=== PATIENT | female | born 2000 | race Caucasian/White ===

== ENCOUNTER 2019-06-20 18:24 | Emergency (ER) | payer OTHER ==
[2019-06-20 18:43] VITALS: BP 122/67; PULSE 86; TEMP 98; BMI 27.1
--- NOTE | 2019-06-20 18:58 | PDOC ---
History of Present Illness - General Chief Complaint: Vaginal Sxs Stated Complaint: VAGINAL IRRITATION Time Seen by Provider: 06/20/19 18:51 History Source: Patient Exam Limitations: No Limitations - History of Present Illness Initial Comments: 06/20/19 19:22 Here with complaints of itching inflamed with white thick discharge consistent with yeast infection. Patient states is supple with same in the past but none recently. Tried apple cider vinegar with no resolve . 8 months , no vaginal bleeding, most with bowel or bladder. Timing/Duration: unsure, getting worse Severity: mild, moderate Associated Symptoms: reports: denies symptoms. denies: fever/chills Past History - Travel Traveled outside of the country in the last 30 days: No Close contact w/someone who was outside of country & ill: No - Past Medical History Allergies/Adverse Reactions: Allergies Allergy/AdvReac Type Severity Reaction Status Date / Time No Known Allergies Allergy Verified 06/20/19 18:31 Home Medications: Ambulatory Orders Clotrimazole [Clotrimazole-7] 45 gm VG HS #1 cream.appl 06/20/19 COPD: No - Suicide/Smoking/Psychosocial Hx Smoking History: Never smoked Review of Systems - Review of Systems Able to Perform ROS?: Yes Is the patient limited [place]uran proficient: Yes Constitutional: Yes: Symptoms Reported, See HPI, Malaise. No: Fever HEENTM: No: Symptoms Reported Respiratory: No: Symptoms reported : Yes: Symptoms Reported, See HPI, Discharge Musculoskeletal: No: Symptoms Reported All Other Systems: Reviewed and Negative *Physical Exam - Vital Signs Last Vital Signs Temp Pulse Resp BP Pulse Ox 98 F 86 18 122/67 99 06/20/19 18:29 06/20/19 18:29 06/20/19 18:29 06/20/19 18:29 06/20/19 18:29 - Physical Exam General Appearance: Yes: Nourished, Appropriately Dressed, Apparent Distress, Mild Distress HEENT: positive: KWAME, Normal ENT Inspection, TMs Normal, Pharynx Normal Neck: positive: Supple Female Pelvic Exam: positive: normal external exam (with mildly swollen, beefy red appearance to vulva and labia with thick white discharge consistent with appearance of candidiasis), discharge Gastrointestinal/Abdominal: negative: Normal Bowel Sounds Extremity: positive: Normal Capillary Refill 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 NML intact, Fully Oriented, Alert, Normal Mood/ Affect, Normal Response, Motor Strength 03/01 Medical Decision Making - Medical Decision Making 06/20/19 19:25 Vaginal candidiasis, we'll treat with teraconazole, safe with 06/20/19 19:27 *DC/Admit/Observation/Transfer Diagnosis at time of Disposition: Vagina, candidiasis - Discharge Dispostion Disposition: HOME Condition at time of disposition: Stable Decision to Admit order: No - Referrals Referrals: ON STAFF,NOT [Primary Care Provider] - - Patient Instructions Printed Discharge Instructions: DI for Vaginal Yeast Infection Additional Instructions: Wash thoroughly with gentle soaps and dry thoroughly Sitz baths in tepid water/warm water may help resolve some of the itching Sexual contact until infection is resolved Use Monistat/clotrimazole cream 1 application nightly for 7 days May use Tylenol for pain relief Follow-up with OB in 2-3 days or if worsening - Post Discharge Activity Forms/Work/School Notes: Back to Work
== END 2019-06-20 19:00 | disposition home or self-care (01) ==
LOC: JERFT 18:24
DX: O26.893 Other specified pregnancy related conditions, third trimester (principal); O98.813 Other maternal infectious and parasitic diseases complicating pregnancy, third trimester; B37.3 Candidiasis of vulva and vagina; Z3A.32 32 weeks gestation of pregnancy
CPT/HCPCS: 87070; 87077; 87186; 87205; 99281-25

== ENCOUNTER 2019-08-01 03:55 | Inpatient (IN) | payer OTHER ==
[2019-08-01] MEDS ORDERED: DEXTROSE 5%-LACTATED RINGERS 1,000 ML IV SCH ×2 (04:00→17:30)
[2019-08-01] MEDS ORDERED: BUTORPHANOL TARTRATE 1 MG/ML VIAL IVPB PRN (04:00)
[2019-08-01] MEDS ORDERED: PROMETHAZINE HCL 25 MG/1 ML VIAL IVPB PRN (04:00)
[2019-08-01] MEDS ORDERED: AMPICILLIN - 2 GM in SODIUM CHLORIDE 100 ML IVPB ONE (05:00)
[2019-08-01] MEDS ORDERED: AMPICILLIN SODIUM 2 GM VIAL ONE (05:00)
[2019-08-01 05:55] VITALS: BMI 32.3
[2019-08-01 06:15] LABS: COCAINE, UR NEGATIVE ng/ml (CUTOFF=300); INR 0.95 (0.83-1.09); METHADONE, UR NEGATIVE ng/ml (CUTOFF=300); OPIATES, URI NEGATIVE ng/ml (CUTOFF=300); PHENCYCLIDINE,URINE NEGATIVE ng/ml (CUTOFF=25); PROTHROMBIN TIME (PATIENT) 11.2 SEC (9.7-13.0); URINE AMPHETAMINES NEGATIVE ng/ml (CUTOFF=500); URINE BARBITURATES NEGATIVE ng/ml (CUTOFF=200); URINE BENZODIAZEPINES NEGATIVE ng/ml (CUTOFF=200)
[2019-08-01 06:18] LABS: ACTIVATED PTT 30.5 SECONDS (25.2-36.5)
[2019-08-01 06:19] LABS: BASO % 0.3 % (0-2.0); EOS % 1.2 % (0-4.5); HEMOGLOBIN 10.4 GM/dL (10.7-15.3); MCH 26.9 pg (25.7-33.7); MCHC 33.4 g/dl (32.0-36.0); MEAN CELL VOLUME 80.4 fl (80-96); MEAN PLT VOLUME 8.2 fl (7.5-11.1); MONO % 8.5 % (3.8-10.2); PLATELET COUNT 318 K/MM3 (134-434); RBC 3.85 M/mm3 (3.60-5.2); RDW 15.8 % (11.6-15.6); WHITE BLOOD COUNT 8.6 K/mm3 (4.0-10.0)
[2019-08-01] MEDS ORDERED: BUTORPHANOL TARTRATE 1 MG/ML VIAL ONE ×2 (06:19)
[2019-08-01] MEDS ORDERED: PROMETHAZINE HCL 25 MG/1 ML VIAL ONE (06:19)
[2019-08-01 06:34] LABS: ALBUMIN 2.6 g/dl (3.4-5.0); BILIRUBIN,TOTAL 0.4 mg/dL (0.2-1); CALCIUM 8.3 mg/dL (8.5-10.1); CREATININE 0.4 mg/dL (0.55-1.3); POTASSIUM 4.1 mmol/L (3.5-5.1); TOT PROT 6.3 g/dl (6.4-8.2)
[2019-08-01 06:40] LABS: EPI CELLS 7.7 /HPF (0-5/HPF); HYALINE CASTS 28 /lpf (0-8); PH,URINE 6.5 (5.0-8.0); URINE APPEARANCE CLEAR; URINE BACTERIA 303.5 /hpf (NEGATIVE); URINE BILIRUBIN NEGATIVE (NEGATIVE); URINE COLOR YELLOW; URINE GLUCOSE (UA) NEGATIVE (NEGATIVE); URINE KETONE NEGATIVE (NEGATIVE); URINE LEUK ESTERASE 1+ (NEGATIVE); URINE NITRITE NEGATIVE (NEGATIVE); URINE PROTEIN NEGATIVE (NEGATIVE); URINE RBC 1 /hpf (0-4); URINE UROBILINOGEN 0.2 mg/dL (0.2-1.0); URINE WBC 10 /hpf (0-5)
[2019-08-01] MEDS ORDERED: FENTANYL/BUPIVACAINE/NS/PF - PCEA - 50 ML DISP.SYRIN EP ONE ×2 (07:50→12:43)
[2019-08-01] MEDS ORDERED: LIDO 2%/EPI 1:200000 PRESRVFRE (20 ML SDVIAL) ONE (07:55)
[2019-08-01] MEDS ORDERED: NALOXONE HCL 0.4 MG/ML VIAL IVPUSH PRN (08:19)
--- NOTE | 2019-08-01 08:22 | PN ---
Progress Note (short form) - Note Progress Note: cx 2 cm 70 vx -3 mr , fhr cat 1, irregular contraction, unable to tolerate pain , requesting epidural , advsied pitocin after epidural toget contraction regulated, rba discussed
[2019-08-01] MEDS ORDERED: AMPICILLIN SODIUM 1 GM VIAL ONE ×2 (08:26→12:20)
[2019-08-01] MEDS ORDERED: ELECTROLYTE-148 SOLN 1,000 ML IV SCH (08:30)
[2019-08-01] MEDS: AMPICILLIN - 1 GM in SODIUM CHLORIDE 100 ML IVPB SCH ×3 (08:30→17:59)
[2019-08-01] MEDS ORDERED: FENTANYL/BUPIVACAINE/NS/PF - PCEA - 50 ML DISP.SYRIN EP SCH (08:30)
[2019-08-01] MEDS ORDERED: OXYTOCIN 30 UNITS in 0.9% NS 30 UNIT/500 ML INFUS.BAG IVPB SCH (08:30)
--- NOTE | 2019-08-01 08:31 | HP ---
Past Medical History - Primary Care Physician PCP:: Ever Palmer - Admission Chief Complaint: 39 weeks, ROM, early labor History of Present Illness: 18 yo f 39 weeks, care in [place], [place] , c/o of rom, clear fluid , has contraction, no bleeding, no fever, good fm, cx 2 cm 75 vx -3 mr, fhr cat 1,irregular contraction, nitrazine positive. History Source: Patient Limitations to Obtaining History: No Limitations - Past Medical History ...: 1 ...Para: 0 ... Weeks Gestation by Dates: 39.4 ...EDC by Dates: 08/04/19 Heme/Onc: Yes: Anemia - Past Surgical History Hx Myomectomy: No Hx Transabdominal Cerclage: No - Smoking History Smoking history: Never smoked - Alcohol/Substance Use Hx Alcohol Use: No History of Substance Use: reports: None - Social History History of Recent Travel: No Home Medications - Allergies Allergies/Adverse Reactions: Allergies Allergy/AdvReac Type Severity Reaction Status Date / Time No Known Allergies Allergy Verified 08/01/19 04:53 - Home Medications Home Medications: Ambulatory Orders Vitamins (Sjr) - 1 tab PO DAILY 08/01/19 Review of Systems - Review of Systems Constitutional: reports: No Symptoms Eyes: reports: No Symptoms HENT: reports: No Symptoms Neck: reports: No Symptoms Cardiovascular: reports: No Symptoms Respiratory: reports: No Symptoms Gastrointestinal: reports: No Symptoms Genitourinary: reports: No Symptoms Breasts: reports: No Symptoms Reported Musculoskeletal: reports: No Symptoms Integumentary: reports: No Symptoms Neurological: reports: No Symptoms Endocrine: reports: No Symptoms Hematology/Lymphatic: reports: No Symptoms Psychiatric: reports: No Symptoms Physical Exam - Maternity Vital Signs: Vital Signs Temperature 98.1 F 08/01/19 07:00 Pulse Rate 69 08/01/19 07:00 Respiratory Rate 20 08/01/19 07:00 Blood Pressure 117/71 08/01/19 07:00 O2 Sat by Pulse Oximetry (%) Constitutional: Yes: Well Nourished, No Distress, Calm Eyes: Yes: WNL, Conjunctiva Clear, EOM Intact HENT: Yes: WNL, Atraumatic, Normocephalic Neck: Yes: WNL, Supple, Trachea Midline Cardiovascular: Yes: WNL, Regular Rate and Rhythm Breast(s): Yes: WNL - Abdominal Exam/OB Fundal Height: 38 Number of Fetuses: Single Presentation: Vertex Contractions: Yes Regularity: Irregular Intensity: Strong Monitor Mode: External Heart Rate Location: [facility] Category: I Accelerations: Non-Uniform Decelerations: None - Vaginal Exam/OB Vaginal Bleediing: No Speculum Exam: Yes Dilatation (cm): 2 cm Effacement (%): 70 Nitrazine Test: Positive Presentation: Vertex/Position Station: -3 - Physical Exam Edema: Yes Edema: LLE: Trace, RLE: Trace Deep Tendon Reflex Grade: Normal +2 ...Motor Strength: WNL Psychiatric: Yes: WNL - Labs Lab Results: CBC, BMP 08/01/19 06:04 08/01/19 04:33 Hemorrhage Risk Assessment - Risk Factors Medium Risk Factors: Yes: None High Risk Factors: Yes: None Risk Score: 1 Risk Level: Medium Risk Problem List - Problems (1) with 39 completed weeks gestation Code(s): Z3A.39 - 39 WEEKS GESTATION OF (2) membrane rupture Code(s): CAH6952 - (3) Labor established Code(s): [id number] - Assessment/Plan admit, GBS unknown, iv ampicillin pain management. if irregular contraction needs pitocin stimulation FHM
--- NOTE | 2019-08-01 10:18 | PN ---
Progress Note (short form) - Note Progress Note: cx 3 cm 80 vx-3 mr, fhr cat 1, on pitocin , contraction q 4 min Problem List - Problems (1) with 39 completed weeks gestation Code(s): Z3A.39 - 39 WEEKS GESTATION OF (2) membrane rupture Code(s): PSO9945 - (3) Labor established Code(s): ESY7589 -
[2019-08-01] MEDS ORDERED: CITRIC ACID/SODIUM CITRATE 30 ML UNIT-DOSE CUP PO ONE (15:41)
--- NOTE | 2019-08-01 15:41 | PN ---
Progress Note (short form) - Note Progress Note: cx 2 cm , edematous , vx -3 , vx contraction q 2 min, no cervicl dilation noted since last exam , with cervical edema advised c/s. risks discussed , ulternatives explained Problem List - Problems (1) with 39 completed weeks gestation Code(s): Z3A.39 - 39 WEEKS GESTATION OF (2) membrane rupture Code(s): [id number] - (3) Labor established Code(s): FSY1762 -
[2019-08-01] MEDS ORDERED: BUPIVACAINE HCL/PF 2.5 MG/ML - 30 ML VIAL IJ ONE (16:00)
--- NOTE | 2019-08-01 16:11 | PN ---
Problem List - Problems (1) with 39 completed weeks gestation Code(s): Z3A.39 - 39 WEEKS GESTATION OF (2) membrane rupture Code(s): [id number] - (3) Labor established Code(s): UOU1512 -
[2019-08-01] MEDS ORDERED: ceFAZolin SODIUM 1 GM VIAL ONE (16:16)
[2019-08-01] MEDS: CEFAZOLIN 1 GM/D5W 1 GM/50 ML BAG IVPB SCH (16:17)
[2019-08-01] MEDS ORDERED: PROPOFOL 20 ML ONE (16:28)
[2019-08-01] MEDS ORDERED: SUCCINYLCHOLINE CHLORIDE 200 MG/10 ML SYRINGE ONE (16:32)
[2019-08-01] MEDS ORDERED: OXYTOCIN 10 UNITS/ML VIAL ONE (16:36)
[2019-08-01] MEDS ORDERED: morphine SULFATE/PF 0.5 MG/ML (2cc Syringe - QUVA) ONE ×3 (16:40)
[2019-08-01] MEDS ORDERED: DEXAMETHASONE SOD PHOSPHATE 4 MG/1 ML VIAL ONE (16:42)
[2019-08-01] MEDS ORDERED: BENZOCAINE 28 GM HEMORRHOIDAL OINTMENT PR PRN (17:18)
[2019-08-01] MEDS ORDERED: METHYLERGONOVINE MALEATE 0.2 MG/1 ML AMP IM PRN (17:18)
[2019-08-01] MEDS ORDERED: IBUPROFEN 800 MG/8 ML IJ IVPB PRN (17:18)
[2019-08-01] MEDS ORDERED: diphenhydrAMINE HCL 25 MG CAPSULE (FP) PO PRN (17:18)
[2019-08-01] MEDS ORDERED: BENZOCAINE 20% 57 GM BOTTLE TP PRN (17:18)
[2019-08-01] MEDS ORDERED: oxyCODONE HCL 5 MG TABLET PO PRN (17:18)
[2019-08-01] MEDS ORDERED: WITCH HAZEL 50% (TUCKS) 40 PAD/JAR PAD TP PRN (17:18)
[2019-08-01] MEDS ORDERED: ACETAMINOPHEN 1000 MG/100 ML VIAL (NON FORMULARY) IVPB PRN (17:19)
--- NOTE | 2019-08-01 17:22 | OP ---
Operative Note - Note: Operative Date: 08/01/19 Pre-Operative Diagnosis: 39 weeks, ROM, failure to dilate Operation: primary LST c/s Findings: live baby girl 07/06 Surgeon: Ever Palmer Gyro Mechanic: Garrett Gonzalez Anesthesia: General, Epidural Specimens Removed: placenta Estimated Blood Loss (mls): 500 Drains & Tubes with Location: edgar Blood Volume Replaced (mls): 0 Operative Report Dictated: Yes
[2019-08-01] MEDS ORDERED: ONDANSETRON 4 MG/2 ML VIAL IVPUSH PRN (17:25)
[2019-08-01] MEDS ORDERED: HYDROmorphone *PCA* 10MG/50ML DISP.SYRIN PCA SCH (17:30)
[2019-08-01] MEDS ORDERED: LACTATED RINGERS SOLUTION 1,000 ML IV SCH (17:30)
[2019-08-01] MEDS ORDERED: OXYTOCIN 20 UNITS in 0.9% NS 20 UNIT/1,000 ML INFUS.BAG IV SCH (17:30)
[2019-08-01] MEDS ORDERED: OXYTOCIN 20 UNITS in 0.9% NS 20 UNIT/1,000 ML INFUS.BAG IV ONE (17:48)
[2019-08-01] MEDS ORDERED: HYDROmorphone *PCA* 10MG/50ML DISP.SYRIN ONE (18:01)
[2019-08-02] MEDS: CEFAZOLIN 1 GM/D5W 1 GM/50 ML BAG IVPB SCH (01:10)
[2019-08-02 09:09] LABS: BASO % 0.5 % (0-2.0); EOS % 0.4 % (0-4.5); HEMATOCRIT 27.6 % (32.4-45.2); HEMOGLOBIN 9.1 GM/dL (10.7-15.3); LYMPH % 11.3 % (8-40); MCH 26.4 pg (25.7-33.7); MCHC 32.9 g/dl (32.0-36.0); MEAN CELL VOLUME 80.3 fl (80-96); MEAN PLT VOLUME 8.2 fl (7.5-11.1); MONO % 7.3 % (3.8-10.2); NEUT % 80.5 % (42.8-82.8); PLATELET COUNT 286 K/MM3 (134-434); RBC 3.44 M/mm3 (3.60-5.2); RDW 15.4 % (11.6-15.6); WHITE BLOOD COUNT 13.8 K/mm3 (4.0-10.0)
[2019-08-02] MEDS ORDERED: FLU VACC QS2019-20(6MOS UP)/PF 60 MCG/0.5 ML SYRINGE IM ONE (09:45)
[2019-08-02] MEDS ORDERED: FLU VACCINE QUAD 60 MCG/0.5 ML (MDV 19-20) IM ONE (10:00)
[2019-08-02] MEDS ORDERED: DIPHTH,PERTUSS(ACELL),TET 0.5 ML DISP.SYRIN IM ONE (10:00)
--- NOTE | 2019-08-02 10:48 | PN ---
Progress Note (short form) - Note Progress Note: pod 1 ,doing well, no c/o CBC, BMP 08/02/19 07:00 08/01/19 04:33 Last Vital Signs Temp Pulse Resp BP Pulse Ox 98.2 F 74 20 102/61 97 08/02/19 06:00 08/02/19 06:00 08/02/19 06:00 08/02/19 06:00 08/01/19 22:10 abdomen soft, no distension, no cva incision dry, clean no calf tenderness edgar clear urine plan ambulate, advance diet, pain management Problem List - Problems (1) with 39 completed weeks gestation Code(s): Z3A.39 - 39 WEEKS GESTATION OF (2) membrane rupture Code(s): [id number] - (3) Labor established Code(s): [id number] -
--- NOTE | 2019-08-02 12:05 | PN ---
Progress Note (short form) - Note Progress Note: 18yo F s/p C/S req GA pain controlled w IV meds, not using POLE CLIMBER. to d/c POLE CLIMBER and cont PO meds and adjuncts good result anesthetic care
[2019-08-02] MEDS: SIMETHICONE 80 MG TAB.CHEW (FP) PO PRN ×2 (14:24→15:44)
[2019-08-02] MEDS: IBUPROFEN 600 MG TABLET (FP) PO PRN (14:24)
[2019-08-02] MEDS: ACETAMINOPHEN 325 MG TABLET (FP) PO PRN (14:25)
[2019-08-02] MEDS: oxyCODONE HCL 5 MG TABLET PO PRN (15:43)
[2019-08-02] MEDS: ENOXAPARIN NA (PORCINE) 40 MG/0.4 ML DISP.SYRIN SQ SCH (15:45)
[2019-08-02] MEDS ORDERED: PCA PUMP KEY 1 EACH EACH ONE (16:02)
[2019-08-02] MEDS ORDERED: BISACODYL 10 MG SUPP.RECT PR PRN (17:18)
[2019-08-03] MEDS: oxyCODONE HCL 5 MG TABLET PO PRN ×2 (03:45→22:55)
[2019-08-03] MEDS: SIMETHICONE 80 MG TAB.CHEW (FP) PO PRN ×4 (03:45→21:02)
[2019-08-03] MEDS: ACETAMINOPHEN 325 MG TABLET (FP) PO PRN ×4 (03:46→21:03)
[2019-08-03] MEDS: IBUPROFEN 600 MG TABLET (FP) PO PRN ×3 (08:10→21:03)
[2019-08-03] MEDS: ENOXAPARIN NA (PORCINE) 40 MG/0.4 ML DISP.SYRIN SQ SCH (09:54)
[2019-08-03 12:53] LABS: POC NITRAZINE NEG
--- NOTE | 2019-08-03 14:07 | PN ---
Progress Note (short form) - Note Progress Note: pod 2 s/p c/s , ambulating, had BM .no excess vaginal bleeding CBC, BMP 08/02/19 07:00 08/01/19 04:33 Last Vital Signs Temp Pulse Resp BP Pulse Ox 98.2 F 75 20 102/55 L 97 08/03/19 10:00 08/03/19 10:00 08/03/19 10:00 08/03/19 10:00 08/01/19 22:10 abdomen soft, no distension, no cva uterus firm, non tender lochia mild no calf tenderness plan ambulate , cbc in am pain management Problem List - Problems (1) with 39 completed weeks gestation Code(s): Z3A.39 - 39 WEEKS GESTATION OF (2) membrane rupture Code(s): [id number] - (3) Labor established Code(s): HPH3739 -
[2019-08-03] MEDS: SENNOSIDES/DOCUSATE COMBO (SENNA PLUS) TABLET (UD) PO PRN (21:02)
--- NOTE | 2019-08-04 07:47 | PN ---
Post Progress Note Type of Delivery: Primary C/S Vital Signs: Vital Signs Temperature 98.0 F 08/03/19 20:39 Pulse Rate 70 08/03/19 20:39 Respiratory Rate 20 08/03/19 20:39 Blood Pressure 114/54 L 08/03/19 20:39 O2 Sat by Pulse Oximetry (%) 97 08/01/19 22:10 Breast Exam: Yes: Other (deferred) Uterus: Yes: Fundus Firm Incision: Yes: Dressing dry and intact, [place]ise[place] intact Abdomen/GI: Yes: Abdomen soft Lochia, amount: Moderate Extremities: Yes: Calves non-tender Activity: Ambulating - Labs Labs: CBC WBC 13.8 K/mm3 (4.0-10.0) H 08/02/19 07:00 RBC 3.44 M/mm3 (3.60-5.2) L 08/02/19 07:00 Hgb 9.1 GM/dL (10.7-15.3) L 08/02/19 07:00 Hct 27.6 % (32.4-45.2) L 08/02/19 07:00 MCV 80.3 fl (80-96) 08/02/19 07:00 MCH 26.4 pg (25.7-33.7) 08/02/19 07:00 MCHC 32.9 g/dl (32.0-36.0) 08/02/19 07:00 RDW 15.4 % (11.6-15.6) 08/02/19 07:00 Plt Count 286 K/MM3 (134-434) 08/02/19 07:00 MPV 8.2 fl (7.5-11.1) 08/02/19 07:00 Absolute Neuts (auto) 11.1 K/mm3 (1.5-8.0) H 08/02/19 07:00 Neutrophils % 80.5 % (42.8-82.8) 08/02/19 07:00 Lymphocytes % 11.3 % (8-40) D 08/02/19 07:00 Monocytes % 7.3 % (3.8-10.2) 08/02/19 07:00 Eosinophils % 0.4 % (0-4.5) 08/02/19 07:00 Basophils % 0.5 % (0-2.0) 08/02/19 07:00 Nucleated RBC % 0 % (0-0) 08/02/19 07:00 Other Findings, Remarks: Patient was shivering on exam Assessment/Plan POD # 3 stable vitals and H/H, significant shivering. Patient desires to stay an extra day. -Continue PP/post-op care -CBC in the AM -warm blanket -Breakfast
[2019-08-04 08:35] LABS: BASO % 0.3 % (0-2.0); EOS % 2.8 % (0-4.5); HEMOGLOBIN 8.8 GM/dL (10.7-15.3); LYMPH % 21.1 % (8-40); MCH 26.2 pg (25.7-33.7); MCHC 32.8 g/dl (32.0-36.0); MEAN CELL VOLUME 79.9 fl (80-96); MEAN PLT VOLUME 7.9 fl (7.5-11.1); MONO % 8.6 % (3.8-10.2); NEUT % 67.2 % (42.8-82.8); PLATELET COUNT 297 K/MM3 (134-434); RBC 3.38 M/mm3 (3.60-5.2); RDW 15.5 % (11.6-15.6); WHITE BLOOD COUNT 7.6 K/mm3 (4.0-10.0)
[2019-08-04] MEDS: ACETAMINOPHEN 325 MG TABLET (FP) PO PRN ×2 (08:54→22:02)
[2019-08-04] MEDS: IBUPROFEN 600 MG TABLET (FP) PO PRN ×2 (08:55→22:01)
[2019-08-04] MEDS: SIMETHICONE 80 MG TAB.CHEW (FP) PO PRN ×2 (08:56→22:01)
[2019-08-04] MEDS: ENOXAPARIN NA (PORCINE) 40 MG/0.4 ML DISP.SYRIN SQ SCH (11:01)
--- NOTE | 2019-08-04 17:07 | PATH ---
Surgical Pathology Report Patient Name: JUSTIN CONNER Med. Rec. 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 Specimen(s) Received PLACENTA Clinical History , 39.4 weeks PROM, failure to dilate Final Diagnosis PLACENTA, SECTION: 570 G THIRD TRIMESTER PLACENTA. MILD TO MODERATE ACUTE CHORIOAMNIONITIS. TRIVASCULAR UMBILICAL CORD WITH ACUTE PHLEBITIS. Electronically Signed Ellen Bobo M.D. Gross Description The specimen is received fresh labeled placenta and is a 570 gram, 21 x 17 x 1.5 cm. placenta with attached membranes and umbilical cord. The attached membranes are pink-pelaez, opaque and insert marginally. The umbilical cord measures 18 cm. in length and averages 1.5 cm. in diameter. The cord inserts eccentrically, 3 cm. to the nearest margin. No true knots or strictures are identified. Cut surface of the umbilical cord reveals 3 vessels. The surface is levin-blue with minimal fibrin deposition and appropriate caliber vessels. The maternal surface is red-brown with focal defects. Sectioning reveals red-brown, spongy parenchyma. No lesions are identified. Curb Machine Operator sections are submitted in three cassettes as follows: 1- membrane rolls and umbilical cord; 2-3- full thickness sections of placenta. MLSZ/08/03/2019 sanml/08/03/2019
[2019-08-04] MEDS: SENNOSIDES/DOCUSATE COMBO (SENNA PLUS) TABLET (UD) PO PRN (21:58)
[2019-08-04] MEDS: oxyCODONE HCL 5 MG TABLET PO PRN (23:30)
--- NOTE | 2019-08-05 08:30 | PN ---
Post Progress Note - Subjective Subjective: no complains of dizziness voiding without difficulty pain score 6/10 max Post Day: 4 Type of Delivery: Primary C/S Vital Signs: Vital Signs Temperature 98.3 F 08/04/19 22:00 Pulse Rate 90 08/04/19 22:00 Respiratory Rate 18 08/04/19 22:00 Blood Pressure 103/60 08/04/19 22:00 O2 Sat by Pulse Oximetry (%) 97 08/01/19 22:10 Breast Exam: Yes: Soft, Other (bottle & BF ). No: Engorged Uterus: Yes: Fundus Firm, Fundus below umbilicus, Non-tender Incision: Yes: Other ([place] removed , wound healing satisfactory. steristrips applied .edges well approximated ). No: Redness, Oozing Abdomen/GI: Yes: Abdomen soft, Passing flatus, Tolerating PO (diet ). No: Abdominal Distention, Tender Lochia: Yes: Rubra Lochia, amount: Small Extremities: Yes: Calves non-tender Perineum: Yes: Intact Activity: Ambulating - Labs Labs: CBC WBC 7.6 K/mm3 (4.0-10.0) 08/04/19 07:05 RBC 3.38 M/mm3 (3.60-5.2) L 08/04/19 07:05 Hgb 8.8 GM/dL (10.7-15.3) L 08/04/19 07:05 Hct 27.0 % (32.4-45.2) L 08/04/19 07:05 MCV 79.9 fl (80-96) L 08/04/19 07:05 MCH 26.2 pg (25.7-33.7) 08/04/19 07:05 MCHC 32.8 g/dl (32.0-36.0) 08/04/19 07:05 RDW 15.5 % (11.6-15.6) 08/04/19 07:05 Plt Count 297 K/MM3 (134-434) 08/04/19 07:05 MPV 7.9 fl (7.5-11.1) 08/04/19 07:05 Absolute Neuts (auto) 5.1 K/mm3 (1.5-8.0) 08/04/19 07:05 Neutrophils % 67.2 % (42.8-82.8) 08/04/19 07:05 Lymphocytes % 21.1 % (8-40) D 08/04/19 07:05 Monocytes % 8.6 % (3.8-10.2) 08/04/19 07:05 Eosinophils % 2.8 % (0-4.5) D 08/04/19 07:05 Basophils % 0.3 % (0-2.0) 08/04/19 07:05 Nucleated RBC % 0 % (0-0) 08/04/19 07:05 Problem List - Problems (1) Status post section routine follow-up Code(s): Z39.2 - ENCOUNTER FOR ROUTINE FOLLOW-UP; Z98.891 - HISTORY OF UTERINE SCAR FROM PREVIOUS SURGERY Assessment/Plan Anemia , Post op noted pt counselled for anemia & diet, po prenatl vit 7 iron wound care explained pp instructions given discharge today
[2019-08-05] MEDS: ENOXAPARIN NA (PORCINE) 40 MG/0.4 ML DISP.SYRIN SQ SCH (09:29)
[2019-08-05 10:03] VITALS: BP 108/51; PULSE 58; TEMP 98.1
--- NOTE | 2019-08-05 19:07 | DS ---
Physical Exam-SALES AND CUSTOMER RELATIONS REP Vital Signs: Vital Signs Temperature 98.1 F 08/05/19 09:00 Pulse Rate 58 L 08/05/19 09:00 Respiratory Rate 18 08/05/19 09:00 Blood Pressure 108/51 L 08/05/19 09:00 O2 Sat by Pulse Oximetry (%) 97 08/01/19 22:10 Constitutional: Yes: Well Nourished, No Distress, Calm Eyes: Yes: WNL, Conjunctiva Clear, EOM Intact HENT: Yes: WNL, Atraumatic, Normocephalic Neck: Yes: WNL, Supple, Trachea Midline Cardiovascular: Yes: WNL, Regular Rate and Rhythm Respiratory: Yes: WNL, Regular, CTA Bilaterally Gastrointestinal: Yes: WNL ...Rectal Exam: Yes: WNL Renal/: Yes: WNL ....Post : Yes: Uterus firm, Uterus non-tender, Slight lochia rubra Breast(s): Yes: WNL Musculoskeletal: Yes: WNL Extremities: Yes: WNL Integumentary: Yes: WNL Wound/Incision: Yes: Clean/Dry, Well Approximated, [place] Intact Neurological: Yes: WNL, Alert, Oriented ...Motor Strength: WNL Psychiatric: Yes: WNL, Alert, Oriented Labs: CBC, BMP 08/04/19 07:05 08/01/19 04:33 Delivery - Delivery Section: Primary, Low Flap Transverse Type of Anesthesia: Epidural, General EBL (cc): 500 Delivery, Single - Stages of Labor Date of Delivery: 08/01/19 Time of Delivery: 16:32 Time Placenta Delivered: 16:33 Placenta: Yes: Expressed - Condition of Infant Shell Coremaker/Child Care Sitter Present: Yes Name: Chandrika Armijo Gender: Female Weight: 6 lb 14 oz Position: Right, OP Total Hours ROM (Hrs/Mins): 14 hours and 32 minutes - 1 Minute Total Score: 9 5 Minutes Total Score: 9 - Feeding Plan Initial Plan: Elected not to breastfeed exclusively throughout hospitalization Discharge Summary Reason For Visit: LABOR ADMIT Procedures: Principal: primary lst c/s Hospital Course: anemia Condition: Stable - Instructions Diet, Activity, Other Instructions: Discharge Instructions * Out of Bed * * Regular Diet * Merari Care * Avoid sex for 6 weeks * RTC 1 Week for Wound Check with Dr Palmer , at 2, [facility] , [phone] call for appt If you experience excessive bleeding or fever over 101 degrees, call doctor, the clinic or go to the Emergency Room. Referrals: Ever Palmer MD [Staff Physician] - Disposition: HOME - Home Medications Comprehensive Discharge Medication List: Ambulatory Orders Acetaminophen [Tylenol .Regular Strength -] 500 mg PO Q4H PRN #30 tablet Ferrous Sulfate [Feosol] 325 mg PO BID #60 tablet 08/05/19 Ibuprofen [Motrin -] 600 mg PO Q4H PRN #30 tablet 08/05/19 Vitamins (Sjr) - 1 tab PO DAILY #30 tablet 08/05/19 Sennosides/Docusate Sodium [Pericolace -] 2 tablet PO HS PRN #30 tablet
== END 2019-08-05 11:40 | disposition home or self-care (01) | DRG 540 ==
LOC: JDEL 03:55 → JLDR 04:05 → J3W 21:15
PROVIDERS: ADMIT Obstetrics & Gynecology; ATTEND Obstetrics & Gynecology
PROC: 10D00Z1 Extraction of Products of Conception, Low, Open Approach (ICD-10-PCS; principal; 2019-08-01)
DX: O62.0 Primary inadequate contractions (principal); O90.81 Anemia of the puerperium; Z3A.39 39 weeks gestation of pregnancy; Z37.0 Single live birth
CPT/HCPCS: 36415; 36600; 59025; 80053; 80307; 81003; 82803; 83986-QW; 85025; 85610; 85730; 86593; 86762; 86850; 86900; 86901; 87340; 87389; 88307-TC; 90686; 90715

== ENCOUNTER 2020-09-17 19:58 | Emergency (ER) | payer OTHER ==
[2020-09-17 20:17] VITALS: BMI 25.8
[2020-09-17 21:23] LABS: BASO % 0.7 % (0-2.0); EOS % 4.1 % (0-4.5); HEMATOCRIT 34.5 % (32.4-45.2); LYMPH % 28.2 % (8-40); MCH 24.8 pg (25.7-33.7); MCHC 31.8 g/dl (32.0-36.0); MEAN PLT VOLUME 8.5 fl (7.5-11.1); MONO % 9.8 % (3.8-10.2); NEUT % 57.2 % (42.8-82.8); PLATELET COUNT 281 K/MM3 (134-434); RBC 4.42 M/mm3 (3.60-5.2); RDW 15.3 % (11.6-15.6); WHITE BLOOD COUNT 6.6 K/mm3 (4.0-10.0)
[2020-09-17 21:36] LABS: POTASSIUM 4.1 mmol/L (3.5-5.1)
[2020-09-17 21:38] LABS: CALCIUM 8.7 mg/dL (8.5-10.1)
[2020-09-17 21:39] LABS: ALBUMIN 3.7 g/dl (3.4-5.0); BLOOD UREA NITROGEN 6.8 mg/dL (7-18)
[2020-09-17 21:42] LABS: CREATININE 0.5 mg/dL (0.55-1.3)
[2020-09-17 21:43] LABS: BILIRUBIN,TOTAL 0.3 mg/dL (0.2-1); TOT PROT 7.3 g/dl (6.4-8.2)
[2020-09-17 21:49] LABS: EPI CELLS 31 /uL (0-25.1); HYALINE CASTS 4 /uL (0-3.1); URINE APPEARANCE TURBID; URINE BACTERIA 1891 /uL (0-1359); URINE BILIRUBIN NEGATIVE (NEGATIVE); URINE COLOR YELLOW; URINE GLUCOSE (UA) NEGATIVE (NEGATIVE); URINE KETONE NEGATIVE (NEGATIVE); URINE LEUK ESTERASE TRACE (NEGATIVE); URINE NITRITE NEGATIVE (NEGATIVE); URINE PROTEIN NEGATIVE (NEGATIVE); URINE RBC 228 /uL (0-23.9); URINE WBC 29 /uL (0-25.8)
[2020-09-17] MEDS ORDERED: ACETAMINOPHEN 325 MG TABLET (FP) ONE (23:59)
[2020-09-18] MEDS ORDERED: ACETAMINOPHEN 500 MG TABLET (FP) PO ONE
[2020-09-18 00:10] VITALS: BP 117/64; PULSE 68; TEMP 98.1
== END 2020-09-18 00:06 | disposition home or self-care (01) ==
LOC: JER 19:58
DX: O20.8 Other hemorrhage in early pregnancy (principal)
CPT/HCPCS: 36415; 76817-TC; 80053; 81003; 84702; 84703; 85025; 87086; 87491; 87591; 99284-25

== ENCOUNTER 2020-09-19 18:56 | Emergency (ER) | payer OTHER ==
[2020-09-19 19:35] VITALS: BP 103/41; PULSE 67; TEMP 98.1; BMI 26.9
[2020-09-19 22:09] LABS: HEMATOCRIT 34.4 % (32.4-45.2); HEMOGLOBIN 11.1 GM/dL (10.7-15.3); MCH 25.2 pg (25.7-33.7); MCHC 32.3 g/dl (32.0-36.0); MEAN CELL VOLUME 78.1 fl (80-96); MEAN PLT VOLUME 8.4 fl (7.5-11.1); PLATELET COUNT 289 K/MM3 (134-434); WHITE BLOOD COUNT 6.8 K/mm3 (4.0-10.0)
[2020-09-19 22:17] LABS: EPI CELLS 12 /uL (0-25.1); HYALINE CASTS 2 /uL (0-3.1); PH,URINE 7.5 (5.0-8.0); URINE APPEARANCE CLEAR; URINE BACTERIA 428 /uL (0-1359); URINE BILIRUBIN NEGATIVE (NEGATIVE); URINE COLOR YELLOW; URINE GLUCOSE (UA) NEGATIVE (NEGATIVE); URINE KETONE 2+ (NEGATIVE); URINE LEUK ESTERASE NEGATIVE (NEGATIVE); URINE NITRITE NEGATIVE (NEGATIVE); URINE PROTEIN NEGATIVE (NEGATIVE); URINE RBC 10 /uL (0-23.9); URINE UROBILINOGEN 0.2 mg/dL (0.2-1.0); URINE WBC 6 /uL (0-25.8)
== END 2020-09-20 00:16 | disposition home or self-care (01) ==
LOC: JER 18:56
DX: O03.9 Complete or unspecified spontaneous abortion without complication (principal)
CPT/HCPCS: 36415; 76817-TC; 81003; 84702; 85027; 86850; 86900; 86901; 87077; 87086; 99284-25

== ENCOUNTER 2021-04-27 18:52 | Emergency (ER) | payer OTHER ==
[2021-04-27 19:00] VITALS: TEMP 98.5; BMI 28.7
[2021-04-27] MEDS ORDERED: IBUPROFEN 600 MG TABLET (FP) PO ONE ×2 (19:42→20:06)
[2021-04-27 20:49] LABS: BASO % 0.4 % (0-2.0); EOS % 0.7 % (0-4.5); HEMOGLOBIN 11.8 GM/dL (10.7-15.3); LYMPH % 17.7 % (8-40); MCH 25.2 pg (25.7-33.7); MCHC 32.8 g/dl (32.0-36.0); MEAN PLT VOLUME 8.1 fl (7.5-11.1); MONO % 9.8 % (3.8-10.2); NEUT % 71.4 % (42.8-82.8); PLATELET COUNT 317 10^3/uL (134-434); RBC 4.67 M/mm3 (3.60-5.2); RDW 15.4 % (11.6-15.6); WHITE BLOOD COUNT 9.3 K/mm3 (4.0-10.0)
[2021-04-27 21:00] LABS: BLOOD UREA NITROGEN 8.6 mg/dL (7-18); CALCIUM 8.6 mg/dL (8.5-10.1)
[2021-04-27 21:04] LABS: CREATININE 0.5 mg/dL (0.55-1.3)
[2021-04-27 22:49] VITALS: BP 109/68; PULSE 87
[2021-05-05 17:07] LABS: BABESIA MICROTI ANTIBODY IGG <1:10 (Neg:<1:10); BABESIA MICROTI ANTIBODY IGM <1:10 (Neg:<1:10)
== END 2021-04-27 22:49 | disposition home or self-care (01) ==
LOC: JER 18:52
DX: L03.115 Cellulitis of right lower limb (principal)
CPT/HCPCS: 36415; 80048; 82930; 85025; 86618; 86753; 93971-TC; 99284-25